=== PATIENT | female | born 1970 | race African-American/Black ===

== ENCOUNTER 2022-06-02 12:57 | Emergency (ER) | payer MEDICAID, OTHER ==
[~2022-06-02] VITALS: Ht 167.6 cm; Wt 67.0 kg
[2022-06-02] MEDS ORDERED: ONDANSETRON HCL 4MG/2ML INJ IV STA (13:49)
[2022-06-02] MEDS ORDERED: DIAZEPAM 5 MG/ML 2ML CPJ IV ONE (14:00)
[2022-06-02] MEDS ORDERED: SODIUM CHLORIDE 0.9% 1,000 ML IV ONE (14:00)
[2022-06-02 14:26] LABS: BASOPHILS % 0.4 % (0.0-2.0); HEMATOCRIT. 38.6 % (36.0-48.0); HEMOGLOBIN. 13.1 g/dL (12.0-16.0); LYMPHOCYTES % 11.7 % (20.0-50.0); MEAN CORPUSCULAR VOLUME 97.5 fL (81.0-99.0); MEAN PLATELET VOLUME 8.8 fl (7.4-10.4); MONOCYTES % 9.7 % (2.0-8.0); NEUTROPHILS % 78.2 % (40.0-76.0); PLATELET 249 x1000/uL (130-400); RED BLOOD CELL COUNT 3.96 mill/uL (4.2-5.4); RED CELL DISTRIBUTION WIDTH 13.7 % (11.6-14.6)
[2022-06-02 14:35] LABS: CLARITY URINE CLOUDY (CLEAR); COLOR URINE DARK YELLOW (YELLOW); KETONES URINE 3+ (NEGATIVE); LEUKOCYTE ESTERASE URINE TRACE (NEGATIVE); NITRITE URINE NEGATIVE (NEGATIVE); OCCULT BLOOD URINE TRACE (NEGATIVE); PH URINE 6.5 (4.5-8.0); PROTEIN URINE 1+ (NEGATIVE); SPECIFIC GRAVITY URINE 1.031 (1.005-1.030)
[2022-06-02 14:41] LABS: PROTHROMBIN TIME 11.2 sec (9.6-11.0)
[2022-06-02 14:42] LABS: HCG SCREEN NEGATIVE
[2022-06-02 14:44] LABS: CHLORIDE 105 mEq/L (98-107)
[2022-06-02] MEDS ORDERED: POTASSIUM CHLORIDE 20MEQ TABLET SR PO NR (15:30)
[2022-06-02 17:21] VITALS: BP 145/63
== END 2022-06-02 17:22 | disposition home or self-care (01) ==
LOC: ER 14:24
DX: R06.02 Shortness of breath (principal); E88.89 Other specified metabolic disorders; E86.0 Dehydration; E87.6 Hypokalemia; D72.829 Elevated white blood cell count, unspecified
CPT/HCPCS: 36415; 71045; 80053; 81003; 83690; 83880; 84703; 85025; 85610; 93005; 96374; 96375; 99285; J2405; J3360; J7030; Z7610